=== PATIENT | male | born 1985 | race Caucasian/White ===

== ENCOUNTER 2016-12-16 08:27 | Emergency (ER) | payer OTHER ==
[~2016-12-16] VITALS: Ht 185.4 cm; Wt 128.4 kg
[2016-12-16 09:41] VITALS: BP 148/93
== END 2016-12-16 09:41 | disposition home or self-care (01) ==
LOC: EME 08:27
DX: S09.90XA Unspecified injury of head, initial encounter (principal); W22.8XXA Striking against or struck by other objects, initial encounter; Y99.0 Civilian activity done for income or pay
CPT/HCPCS: 70450; 99281; 99284

== ENCOUNTER 2016-12-24 15:41 | Emergency (ER) | payer OTHER ==
[~2016-12-24] VITALS: Ht 182.9 cm; Wt 126.0 kg
[2016-12-24 20:10] VITALS: BP 129/76
== END 2016-12-24 20:08 | disposition home or self-care (01) ==
LOC: EME 15:41
DX: G43.109 Migraine with aura, not intractable, without status migrainosus (principal); Z86.69 Personal history of other diseases of the nervous system and sense organs
CPT/HCPCS: 70450; 99281; 99284; J1200; J1885; J2765